=== PATIENT | female | born 1975 | race Caucasian/White ===

== ENCOUNTER → 2017-06-14 | Emergency (ER) | payer OTHER ==
[~2017-06-14] VITALS: Ht 160 cm; Wt 95.3 kg
[~2017-06-14] MED LIST: AMLODIPINE BESYL5 MG; CELEXA20 MG
== END | disposition home or self-care (01) ==
LOC: ER 13:45
DX: M79.81 Nontraumatic hematoma of soft tissue (principal); D64.9 Anemia, unspecified